=== PATIENT | male | born 1975 | race American Indian/Alaskan Native ===

== ENCOUNTER → 2024-08-23 | Outpatient (CLI) | payer OTHER, SELFPAY ==
--- NOTE | 2024-08-23 11:00 | XR_ITS ---
Examination: Pelvic ultrasound, transabdominal, complete Technique: Transabdominal ultrasound of the pelvis performed using grayscale imaging Date and time of exam: August 23, 2024 1159 hours INDICATIONS: Onset pelvic and perineal pain beginning 3 weeks ago. FINDINGS: No bladder mass or bladder calculi Bladder prevoid volume 300 cc Prostate volume 35 cc no prostate nodules IMPRESSION: Prostate volume 35 cc no prostate nodules
--- NOTE | 2024-08-23 11:00 | XR_ITS ---
Examination: Abdomen sonogram, complete Date and time of exam: August 23, 2024 1209 hours INDICATIONS: Lower abdominal discomfort beginning 3 weeks ago. Technique: Multiple real-time grayscale transabdominal sonographic images of the abdomen have been obtained. Findings: Normal gallbladder Normal common bile duct 0.2 cm Pancreatic head 3.4 cm Aorta not enlarged Liver 15.7 cm fatty infiltration Normal hepatopedal portal venous flow Patent IVC Right kidney 10.9 cm cortex 1.7 cm Left kidney 10.5 cm cortex 2.7 cm Mild bilateral renal parenchymal scar formation Spleen 11.1 cm IMPRESSION: Normal gallbladder Mildly prominent pancreatic head, consider CT scan abdomen pelvis intravenous contrast follow-up Fatty liver
== END | disposition home or self-care (01) ==
PROVIDERS: PCP Physician Assistant; Referring Provider Physician Assistant; Visit Provider Physician Assistant
DX: K86.89 Other specified diseases of pancreas (principal); K76.0 Fatty (change of) liver, not elsewhere classified; R10.2 Pelvic and perineal pain
CPT/HCPCS: 76700; 76856